=== PATIENT | female | born 1990 ===

== ENCOUNTER 2020-11-28 20:18 | Emergency (ER) | payer SELFPAY ==
--- NOTE | 2020-11-28 21:39 | ER ---
Nurse's Notes [facility] Name: Veena Reis Age: 30 yrs Sex: Female : 1990 Arrival Date: 11/28/2020 Time: 20:22 Bed Waiting Private MD: Diagnosis: Presentation: 11/28 21:05 Chief complaint: Patient states: is approx 2 months , started having vaginal iw bleeding today and some pain, has been seen at [facility] clinic, G2, P1. Coronavirus screen: At this time, the client does not indicate any symptoms associated with coronavirus-19. Ebola Screen: Patient negative for fever greater than or equal to 101.5 degrees Fahrenheit, and additional compatible Ebola Virus Disease symptoms Patient denies exposure to infectious person. Patient denies travel to an Ebola-affected area in the 21 days before illness onset. No symptoms or risks identified at this time. Initial Sepsis Screen: Does the patient meet any 2 criteria? No. Patient's initial sepsis screen is negative. Does the patient have a suspected source of infection? No. Patient's initial sepsis screen is negative. Risk Assessment: Do you want to hurt yourself or someone else? Patient reports no desire to harm self or others. Onset of symptoms was November 28, 2020. 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 bp1 21:07 Triage completed. iw Administered Medications: No medications were administered Outcome: 21:39 Patient left the ED. iw Signatures: Brynn Bob, RN RN Radha Grimes bp1
[2020-11-28 21:44] VITALS: BP 107/57; TEMP 97.4; O2SAT 100
== END 2020-11-28 21:39 | disposition left against medical advice (07) ==
LOC: ER 20:18
DX: Z53.21 Procedure and treatment not carried out due to patient leaving prior to being seen by health care provider (principal)
CPT/HCPCS: 99281